=== PATIENT | male | born 1985 | race Caucasian/White ===

== ENCOUNTER 2018-08-24 13:04 | Emergency (ER) | payer BC, OTHER ==
[2018-08-24] MEDS ORDERED: Sodium Chloride 0.9% 2.5 ML Syringe FLUSH PRN (13:11)
[2018-08-24] MEDS ORDERED: Sodium Chloride 0.9% 10 ML Syringe FLUSH PRN (13:11)
[2018-08-24] MEDS ORDERED: Diphtheria,Pertussis(Acell),Tetanus Vaccine 0.5 ML Syringe IM ONE (13:23)
[2018-08-24] MEDS ORDERED: ceFAZolin 1 GM in Premix Bag 1 BAG IV ONE (13:23)
[2018-08-24] MEDS ORDERED: Iopamidol 755 MG/ML 500 ML Multipack Bottle IVPUSH STA (13:55)
--- NOTE | 2018-08-24 14:02 | CR ---
EXAMINATION: Left forearm HISTORY: Pain COMPARISON: None TECHNIQUE: 2 views FINDINGS/IMPRESSION: There is no acute osseous abnormality, dislocation, or fracture. Bone mineralization and joint spaces are preserved. Focal soft tissue swelling is noted adjacent to the distal ulna. No subcutaneous air or foreign body.
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
[2018-08-24 14:08] LABS: CHLORIDE,CL 106 mmol/L (98-107); SODIUM,NA 138 mmol/L (136-148)
--- NOTE | 2018-08-24 14:12 | CT ---
EXAMINATION: Non contrast CT head. Coronal and sagittal reformats. HISTORY: Vein FINDINGS: No evidence of intra or extra axial hemorrhage, mass, midline shift, hydrocephalus or edema. No hypoattenuation changes in the major vascular territories to suggest acute infarct. No abnormal intracranial calcifications are detected. No evidence of substantial vascular calcifications. Mild mucosal thickening noted within the ethmoid air cells and maxillary sinuses. Mastoid air cells and middle ears normal. Pituitary fossa appears unremarkable. The orbits and globes are symmetric. Calvarium is intact. No evidence of skull fracture. IMPRESSION: No acute intracranial findings.
--- NOTE | 2018-08-24 14:22 | CT ---
EXAMINATION: CT cervical spine HISTORY: Pain COMPARISON: None TECHNIQUE: Axial CT imaging obtained through the cervical spine without contrast. Coronal and sagittal reconstructions obtained. FINDINGS: The cervical spinal alignment is normal. Vertebral body heights and disc spaces appear well-maintained. Bone mineralization is normal. Paravertebral soft tissues appear normal. No cervical lymphadenopathy. Lung apices are grossly clear. IMPRESSION: No acute cervical spinal abnormality.
--- NOTE | 2018-08-24 14:31 | CT ---
CT of the chest, abdomen and pelvis with contrast. HISTORY: Shortness of breath TECHNIQUE: Axial CT images were obtained of the chest, abdomen and pelvis following administration of 100 mL of Isovue-370 in the right antecubital fossa without complication. Coronal and sagittal reconstructions obtained. FINDINGS: Chest: The lungs are clear without focal consolidation. No pleural effusion or pneumothorax. Heart is normal in size without a pericardial effusion. No axillary, mediastinal, or hilar lymphadenopathy. Thoracic aorta is normal in caliber. The main pulmonary arteries are patent. Abdomen: The liver demonstrates mild fatty infiltration near the gallbladder fossa and falciform ligament. The spleen, adrenal glands, and pancreas appear normal. There is no bulky retroperitoneal lymphadenopathy or abdominal ascites. The kidneys enhance and function symmetrically without evidence of obstructive uropathy. Nonobstructing left nephrolithiasis measuring approximately 2 mm. Pelvis: Anastomosis changes noted near the rectosigmoid junction and within the right lower quadrant. Otherwise the large and small bowel are normal in caliber. The urinary bladder is normal. No bulky pelvic lymphadenopathy or free pelvic fluid. No suspicious osseous abnormalities identified. The femoral heads have a widened appearance with subchondral cystic change and early osteophyte formation. IMPRESSION: 1. No acute findings noted within the chest, abdomen, or pelvis. 2. 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 3. Small nonobstructing left nephrolithiasis.
== END 2018-08-24 15:15 ==
LOC: MW.ED 13:04
DX: S06.0X9A Concussion with loss of consciousness of unspecified duration, initial encounter (principal); S57.82XA Crushing injury of left forearm, initial encounter; S09.312A Primary blast injury of left ear, initial encounter; S01.312A Laceration without foreign body of left ear, initial encounter; Z23 Encounter for immunization; Z79.899 Other long term (current) drug therapy; W40.1XXA Explosion of explosive gases, initial encounter; W19.XXXA Unspecified fall, initial encounter
CPT/HCPCS: 36415; 70450; 71260; 72125; 73090; 74177; 80053; 82550; 85025; 85610; 85730; 86850; 86900; 86901; 90471; 90715; 96365; 99285; J0690; Q9967